=== PATIENT | female | born 1960 | race Caucasian/White ===

== ENCOUNTER → 2017-02-26 | Outpatient (CLI) | payer BC ==
--- NOTE | 2017-02-26 13:57 | XR ---
Left ankle HISTORY: Left ankle pain 3 views of the left ankle No comparisons There is soft tissue swelling. Bone mineralization, joint spaces and alignment are maintained. There is a small plantar calcaneal spur. Enthesophyte present at the insertion of the Achilles tendon. Dege nerative changes are present at the intertarsal joints, some spurring present at the tibiotalar joint . IMPRESSION: No acute fracture or dislocation. Ankle MRI may be of benefit.
== END | disposition home or self-care (01) ==
LOC: RADXRMAIN 11:38
PROVIDERS: ATTEND Family Medicine
DX: M25.572 Pain in left ankle and joints of left foot (principal)

== ENCOUNTER → 2017-03-30 | Outpatient (CLI) | payer BC | END | disposition home or self-care (01) | LOC: RADECHMAIN 12:09 | PROVIDERS: ATTEND Family Medicine | DX: I49.3 Ventricular premature depolarization (principal); I47.1 Supraventricular tachycardia; R00.8 Other abnormalities of heart beat | CPT/HCPCS: 93225; 93226 ==

== ENCOUNTER → 2018-04-29 | Outpatient (CLI) | payer BC ==
--- NOTE | 2018-04-30 10:02 | MM ---
Reason for exam: screening (asymptomatic). Last mammogram was performed 1 year and 11 months ago. History: Patient is postmenopausal and had first child at age 35. Family history of breast cancer in grandmother at age 60. Physical Findings: A clinical breast exam by your physician is recommended on an annual basis and results should be correlated with mammographic findings. MG 3D Screening Mammo W/Cad Bilateral CC and MLO view(s) were taken. Prior study comparison: May 16, 2016, bilateral MG screening mammo w CAD. February 04, 2015, bilateral MG screening mammo w CAD. There are scattered fibroglandular densities. No significant changes when compared with prior studies. ASSESSMENT: Benign, BI-RAD 2 RECOMMENDATION: Routine screening mammogram of both breasts in 1 year.
== END | disposition home or self-care (01) ==
LOC: RADMAMWWP 13:20
PROVIDERS: ATTEND Family Medicine
DX: Z12.31 Encounter for screening mammogram for malignant neoplasm of breast (principal)
CPT/HCPCS: 77063; 77067

== ENCOUNTER 2018-10-12 01:00 | Observation (INO) | payer BC ==
[2018-10-12 01:07] VITALS: RESP 18
[2018-10-12 01:27] LABS: Basophils % (A) 0 %; Eosinophils # (A) 0.2 k/uL (0-0.7); Eosinophils % (A) 3 %; HCT 42.2 % (34.0-46.0); Lymphocytes # (A) 2.6 k/uL (1.0-4.8); Lymphocytes % (A) 28 %; MCH 32.9 pg (25.0-35.0); MCHC 33.2 g/dL (31.0-37.0); MCV 99.1 fL (80.0-100.0); Monocytes # (A) 0.5 k/uL (0-1.0); Monocytes % (A) 6 %; Neutrophils # (A) 5.8 k/uL (1.3-7.7); Neutrophils % (A) 62 %; Platelet Count 162 k/uL (150-450); RBC 4.25 m/uL (3.80-5.40); RDW 13.7 % (11.5-15.5); WBC 9.3 k/uL (3.8-10.6)
[2018-10-12 01:32] LABS: INR 0.9 (<1.2); Partial Thromboplastin Time 28.5 sec (22.0-30.0); Prothrombin Time 10.1 sec (9.0-12.0)
[2018-10-12 01:38] LABS: ALT 20 U/L (9-52); AST 38 U/L (14-36); Albumin 3.6 g/dL (3.5-5.0); Alkaline Phosphatase 61 U/L (38-126); Anion Gap 5 mmol/L; Blood Urea Nitrogen 28 mg/dL (7-17); Carbon Dioxide 30 mmol/L (22-30); Chloride 105 mmol/L (98-107); Glucose 111 mg/dL (74-99); Magnesium 2.1 mg/dL (1.6-2.3); Potassium 4.3 mmol/L (3.5-5.1); Sodium 140 mmol/L (137-145); Total Bilirubin 0.3 mg/dL (0.2-1.3)
--- NOTE | 2018-10-12 01:49 | ED ---
Arrhythmia/Palpitations HPI - General Chief Complaint: Arrhythmia/Palpitations Stated Complaint: AFIB Time Seen by Provider: 10/12/18 01:09 Source: patient Mode of arrival: ambulatory Limitations: no limitations - History of Present Illness Initial Comments: Kady 57-year-old female with a history of A. fib currently on oral metoprolol who presents the ER today via EMS as a transfer from an outside facility. Patient states that she had a very stressful week and a very stressful evening, she reports that she began having palpitations and was concerned that she may be in A. fib, she waited approximately 3 hours but the symptoms persisted she reports feeling as though her heart was racing and she can catch her breath which prompted her to seek care at outside hospital where she was found to be in A. fib with RVR. Patient denies any pressure-like chest pain diaphoresis or lightheadedness. At the outside facility she was found to have a low potassium which was replaced orally, her EKG revealed A. fib with RVR and she was given a 10 mg bolus of Cardizem Zosyn was started on a Cardizem drip. Patient converted back to sinus rhythm during transport to our hospital and was found to be in sinus rhythm upon arrival. Patient had no acute complaints upon arrival. - Related Data Home Medications Medication Instructions Recorded Confirmed Acetaminophen [Tylenol 8 Hour] 650 mg PO Q8H PRN 07/01/18 07/01/18 Apixaban [Eliquis] 5 mg PO BID 07/01/18 07/01/18 Atorvastatin Calcium [Lipitor] 10 mg PO HS 07/01/18 07/01/18 C,E,Zinc,Copper 11/Szmqi2n/Lut 1 cap PO DAILY 07/01/18 07/01/18 [Ocuvite Adult 50 Plus Softgel] Citalopram Hydrobromide [CeleXA] 40 mg PO DAILY 07/01/18 07/01/18 Fluticasone Nasal Jbphh [Flonase 1 spray EA NOSTRIL DAILY 07/01/18 07/01/18 Nasal Jbphh] Furosemide [Lasix] 40 mg PO DAILY 07/01/18 07/01/18 Olopatadine HCl 1 drop BOTH EYES DAILY PRN 07/01/18 07/01/18 Oxybutynin Xl [Ditropan XL] 10 mg PO HS 07/01/18 07/01/18 Potassium Chloride [Klor-Con 20] 20 meq PO BID 07/01/18 07/01/18 busPIRone HCL 10 mg PO DAILY 07/01/18 07/01/18 Previous Rx's Medication Instructions Recorded Metoprolol Succinate (ER) [Toprol 50 mg PO DAILY #30 tab.er.24h 07/03/18 XL] Spironolactone [Aldactone] 25 mg PO DAILY #30 tablet 07/03/18 Allergies Allergy/AdvReac Type Severity Reaction Status Date / Time No Known Allergies Allergy Verified 10/12/18 01:07 Review of Systems ROS Statement: Those systems with pertinent positive or pertinent negative responses have been documented in the HPI. ROS Other: All systems not noted in ROS Statement are negative. Past Medical History Past Medical History: Atrial Fibrillation, Deep Vein Thrombosis (DVT), GI Bleed , Hyperlipidemia, Pneumonia Additional Past Medical History / Comment(s): Afib, DVT L leg, bilateral leg edema, rectal bleed, headaches, bronchitis, sinus allergies, constipation History of Any Multi-Drug Resistant Organisms: None Reported Past Surgical History: Appendectomy, Section, Tonsillectomy Additional Past Surgical History / Comment(s): Pilonidial cyst removed, ovarian cyst removal, colonoscopy with benign polyp Past Anesthesia/Blood Transfusion Reactions: Motion Sickness Additional Past Anesthesia/Blood Transfusion Reaction / Comment(s): Pt states she has had problems with hypotension with surgery. Past Psychological History: Anxiety, Depression Smoking Status: Current every day smoker Past Alcohol Use History: Rare Past Drug Use History: None Reported - Past Family History Father Family Medical History: Diabetes Mellitus Additional Family Medical History / Comment(s): Paternal grandfather had a NV and paternal grandmother had a CVA. Mother Family Medical History: Deep Vein Thrombosis (DVT) Additional Family Medical History / Comment(s): Mother had had DVTs. She is living. Pt's maternal aunt of a PE. Her maternal grandparents had DVTs General Exam - General Exam Comments Initial Comments: Physical Exam GENERAL: Patient is well-developed and well-nourished. Patient is nontoxic and well-hydrated and is in no distress. HENT: Normocephalic, Atraumatic. EYES: PERRL, EOMI PULMONARY: Unlabored respirations. No audible rales rhonchi or wheezing was noted. CARDIOVASCULAR: There is a regular rate and rhythm without any murmurs gallops or rubs. Bilateral lower extremity edema, nonpitting ABDOMEN: Soft and nontender with normal bowel sounds. SKIN: Skin is clear with no lesions or rashes and otherwise unremarkable. : Deferred NEUROLOGIC: Patient is alert and oriented x3. Moving all extremities spontaneously MUSCULOSKELETAL: Normal extremities with adequate strength and full range of motion. No calf tenderness. PSYCHIATRIC: Normal psychiatric evaluation. Limitations: no limitations Limitations: no limitations Course Vital Signs 10/12/18 01:01 Temperature 97.8 F Pulse Rate 65 Respiratory 18 Rate Blood Pressure 108/64 O2 Sat by Pulse 100 Oximetry EKG Findings - EKG Comments: EKG Findings:: EKG obtained at 1:25 AM, rate is 60 rhythm is sinus there is a normal axis there are normal intervals there no acute ST elevations or depressions there is no evidence of acute ischemia or infarction. Medical Decision Making - Medical Decision Making Patient care was discussed with transferring physician Dr. collazo, patient with a history of A. fib which is usually well-controlled on oral Lopressor visiting in A. fib with RVR with rates in the 140s and signed labs the outside facility revealed hypokalemia, troponin negative Patient received Cardizem upon arrival at our hospital patient was in sinus rhythm with rate in the 60s and was mildly hypotensive decision was made to discontinue Cardizem and continue patient's oral Lopressor Repeat labs ordered and patient care was discussed with admitting physician Dr. Rodriguez per patient's PCP Dr. Peralta's preference. Dr. Rodriguez accepts the admission for A. fib with RVR and requests a consult cardiology. Admission orders and consult were placed. Patient remained hemodynamically stable throughout her stay in the emergency department. - Lab Data Result diagrams: 10/12/18 01:15 10/12/18 01:15 Lab Results 10/12/18 10/12/18 10/12/18 Range/Units 01:15 01:15 01:15 WBC 9.3 (3.8-10.6) k/uL RBC 4.25 (3.80-5.40) m/uL Hgb 14.0 (11.4-16.0) gm/dL Hct 42.2 (34.0-46.0) % MCV 99.1 (80.0-100.0) fL MCH 32.9 (25.0-35.0) pg MCHC 33.2 (31.0-37.0) g/dL RDW 13.7 (11.5-15.5) % Plt Count 162 (150-450) k/uL Neutrophils % 62 % Lymphocytes % 28 % Monocytes % 6 % Eosinophils % 3 % Basophils % 0 % Neutrophils # 5.8 (1.3-7.7) k/uL Lymphocytes # 2.6 (1.0-4.8) k/uL Monocytes # 0.5 (0-1.0) k/uL Eosinophils # 0.2 (0-0.7) k/uL Basophils # 0.0 (0-0.2) k/uL PT (9.0-12.0) sec INR (<1.2) APTT (22.0-30.0) sec Sodium 140 (137-145) mmol/L Potassium 4.3 (3.5-5.1) mmol/L Chloride 105 (98-107) mmol/L Carbon Dioxide 30 (22-30) mmol/L Anion Gap 5 mmol/L BUN 28 H (7-17) mg/dL Creatinine 0.77 (0.52-1.04) mg/dL Est GFR (CKD-EPI)AfAm >90 (>60 ml/min/1.73 sqM) Est GFR (CKD-EPI)NonAf 87 (>60 ml/min/1.73 sqM) Glucose 111 H (74-99) mg/dL Calcium 9.0 (8.4-10.2) mg/dL Magnesium 2.1 (1.6-2.3) mg/dL Total Bilirubin 0.3 (0.2-1.3) mg/dL AST 38 H (14-36) U/L ALT 20 (9-52) U/L Alkaline Phosphatase 61 (38-126) U/L Troponin I (0.000-0.034) ng/mL NT-Pro-B Natriuret Pep 133 pg/mL Total Protein 6.0 L (6.3-8.2) g/dL Albumin 3.6 (3.5-5.0) g/dL 10/12/18 10/12/18 Range/Units 01:15 01:15 WBC (3.8-10.6) k/uL RBC (3.80-5.40) m/uL Hgb (11.4-16.0) gm/dL Hct (34.0-46.0) % MCV (80.0-100.0) fL MCH (25.0-35.0) pg MCHC (31.0-37.0) g/dL RDW (11.5-15.5) % Plt Count (150-450) k/uL Neutrophils % % Lymphocytes % % Monocytes % % Eosinophils % % Basophils % % Neutrophils # (1.3-7.7) k/uL Lymphocytes # (1.0-4.8) k/uL Monocytes # (0-1.0) k/uL Eosinophils # (0-0.7) k/uL Basophils # (0-0.2) k/uL PT 10.1 (9.0-12.0) sec INR 0.9 (<1.2) APTT 28.5 (22.0-30.0) sec Sodium (137-145) mmol/L Potassium (3.5-5.1) mmol/L Chloride (98-107) mmol/L Carbon Dioxide (22-30) mmol/L Anion Gap mmol/L BUN (7-17) mg/dL Creatinine (0.52-1.04) mg/dL Est GFR (CKD-EPI)AfAm (>60 ml/min/1.73 sqM) Est GFR (CKD-EPI)NonAf (>60 ml/min/1.73 sqM) Glucose (74-99) mg/dL Calcium (8.4-10.2) mg/dL Magnesium (1.6-2.3) mg/dL Total Bilirubin (0.2-1.3) mg/dL AST (14-36) U/L ALT (9-52) U/L Alkaline Phosphatase (38-126) U/L Troponin I <0.012 (0.000-0.034) ng/mL NT-Pro-B Natriuret Pep pg/mL Total Protein (6.3-8.2) g/dL Albumin (3.5-5.0) g/dL Disposition Clinical Impression: Atrial fibrillation, Atrial fibrillation with RVR Disposition: ADMITTED IP TO THIS HOSP Condition: Stable Is patient prescribed a controlled substance at d/c from ED?: No Referrals: Sara Peralta MD [Primary Care Provider] - 1-2 days
[2018-10-12] MEDS ORDERED: ONDANSETRON 4 MG/2 ML VIAL IVP PRN (06:44)
[2018-10-12] MEDS ORDERED: MELATONIN 3 MG TABLET PO PRN (06:44)
[2018-10-12] MEDS ORDERED: NALOXONE 0.4 MG/ML 1 ML VIAL IV PRN (06:44)
[2018-10-12] MEDS ORDERED: ACETAMINOPHEN TAB 325 MG TAB PO PRN (06:44)
[2018-10-12] MEDS ORDERED: ALPRAZolam 0.25 MG TAB PO PRN (06:44)
--- NOTE | 2018-10-12 06:56 | P.HPIM ---
History of Present Illness H&P Date: 10/12/18 Chief Complaint: palpitation 57-year-old female with history of A. fib, DVT, hypertension, anxiety and depression Patient was at her baseline status of health however she reports overwhelming stress over the past week and she felt mentally exhausted. And then suddenly she felt her heart was racing she waited for 2-3 hours as instructed by her PCP in the past she knew that she is probably in A. fib she wasn't symptomatic at that point denies any chest pain or trouble breathing or any dizziness. However because symptoms didn't resolve of palpitations she decided to go to the hospital she went to a facility at [place], diagnosed with A. fib and RVR started on Cardizem drip. And also she was found to have low potassium that was replaced. And then her blood pressure started dropping she started feeling dizzy patient was transferred to our facility however and Route she converted into normal sinus rhythm. In our facility at the ED Cardizem was discontinued patient was in sinus rhythm. Her labs were unremarkable potassium and magnesium both within normal limits patient was admitted under observation for cardiology to evaluate the patient. Currently patient is asymptomatic laying comfortable in bed Patient otherwise denies any chest pain or trouble breathing denies any GI bleeding denies any fevers or chills denies any abdominal pain Review of Systems Pertinent positives as noted in HPI. All other systems were reviewed and are negative Past Medical History Past Medical History: Atrial Fibrillation, Deep Vein Thrombosis (DVT), GI Bleed , Hyperlipidemia, Pneumonia Additional Past Medical History / Comment(s): Afib, DVT L leg, bilateral leg edema, rectal bleed, headaches, bronchitis, sinus allergies, constipation, abcess on kidney (R), Ovarian cyst History of Any Multi-Drug Resistant Organisms: None Reported Past Surgical History: Appendectomy, Section, Tonsillectomy Additional Past Surgical History / Comment(s): Pilonidial cyst removed, ovarian cyst removal, colonoscopy with benign polyp Past Anesthesia/Blood Transfusion Reactions: Motion Sickness Additional Past Anesthesia/Blood Transfusion Reaction / Comment(s): Pt states she has had problems with hypotension with surgery. Past Psychological History: Anxiety, Depression Additional Psychological History / Comment(s): Pt resides with her spouse. She works in [employer]. She is independent. Smoking Status: Current every day smoker Past Alcohol Use History: Rare Additional Past Alcohol Use History / Comment(s): Pt started smoking in 1977 and is down to a half pack per day. Past Drug Use History: None Reported - Past Family History Father Family Medical History: Diabetes Mellitus Additional Family Medical History / Comment(s): Paternal grandfather had a DC and paternal grandmother had a CVA. Mother Family Medical History: Deep Vein Thrombosis (DVT) Additional Family Medical History / Comment(s): Mother had had DVTs. She is living. Pt's maternal aunt of a PE. Her maternal grandparents had DVTs Medications and Allergies Home Medications Medication Instructions Recorded Confirmed Type Acetaminophen [Tylenol 8 Hour] 650 mg PO Q8H PRN 07/01/18 07/01/18 History Apixaban [Eliquis] 5 mg PO BID 07/01/18 07/01/18 History Atorvastatin Calcium [Lipitor] 10 mg PO HS 07/01/18 07/01/18 History C,E,Zinc,Copper 11/Mczyr1q/Lut 1 cap PO DAILY 07/01/18 07/01/18 History [Ocuvite Adult 50 Plus Softgel] Citalopram Hydrobromide [CeleXA] 40 mg PO DAILY 07/01/18 07/01/18 History Fluticasone Nasal [place] [Flonase 1 spray EA NOSTRIL DAILY 07/01/18 07/01/18 History Nasal [place]] Furosemide [Lasix] 40 mg PO DAILY 07/01/18 07/01/18 History Olopatadine HCl 1 drop BOTH EYES DAILY PRN 07/01/18 07/01/18 History Oxybutynin Xl [Ditropan XL] 10 mg PO HS 07/01/18 07/01/18 History Potassium Chloride [Klor-Con 20] 20 meq PO BID 07/01/18 07/01/18 History busPIRone HCL 10 mg PO DAILY 07/01/18 07/01/18 History Metoprolol Succinate (ER) [Toprol 50 mg PO DAILY #30 tab.er.24h 07/03/18 Rx XL] Spironolactone [Aldactone] 25 mg PO DAILY #30 tablet 07/03/18 Rx Allergies Allergy/AdvReac Type Severity Reaction Status Date / Time No Known Allergies Allergy Verified 10/12/18 01:07 Physical Exam Vitals: Vital Signs Temp Pulse Pulse Resp BP BP Pulse Ox 10/12/18 04:00 97.6 F 63 18 99/64 96 10/12/18 02:18 97.9 F 62 18 90/50 100 10/12/18 01:01 97.8 F 65 18 108/64 100 Intake and Output 10/11/18 10/11/18 10/12/18 14:59 22:59 06:59 Other: Voiding Method Toilet # Voids 1 Weight 111.2 kg Constitutional: No acute distress, conversant, pleasant Eyes: Anicteric sclerae, moist conjunctiva, no lid-lag Pupils equal round reactive to light ENMT: NC/AT Oropharynx clear, no erythema, or exudates Neck: Supple, FROM, no masses, or JVD No carotid bruits No thyromegaly Lungs: Clear to auscultation Clear to percussion Normal respiratory effort, no accessory muscle use Cardiovascular: Heart regular in rate and rhythm, No murmurs, gallops, or rubs Trace peripheral edema bilaterally Abdominal: Soft Nontender, no guarding, rebound or rigidity Abdomen moving with respiration Normoactive bowel sounds No hepatomegaly, No splenomegaly No palpable mass No abdominal wall hernia noted Skin: Normal temperature, tone, texture, turgor No induration No subcutaneous nodules No rash, lesions No ulcers Extremities: No digital cyanosis No clubbing Pedal pulses intact and symmetrical Radial pulses intact and symmetrical No calf tenderness Psychiatric: Alert and oriented to person, place and time Appropriate affect fair judgment Neuro Muscles Strength 5/5 in all 4 extremities Sensation to light touch grossly present throughout Cranial nerves II-XII grossly intact No focal sensory deficits Lymphatics: no palpable cervical or supraclavicular , or inguinal lymph nodes Results CBC & Chem 7: 10/12/18 01:15 10/12/18 01:15 Labs: Abnormal Lab Results - Last 24 Hours (Table) 10/12/18 Range/Units 01:15 BUN 28 H (7-17) mg/dL Glucose 111 H (74-99) mg/dL AST 38 H (14-36) U/L Total Protein 6.0 L (6.3-8.2) g/dL Thrombosis Risk Factor Assmnt - Choose All That Apply Any of the Below Risk Factors Present?: Yes Each Factor Represents 1 point: Age 41-60 years, Obesity (BMI >25), Swollen legs (current) Each Risk Factor Represents 3 Points: Family history of DVT/PE, History of DVT/ PE Thrombosis Risk Factor Assessment Total Risk Factor Score: 9 Thrombosis Risk Factor Assessment Level: High Risk Assessment and Plan Assessment: 57-year-old female with history of A. fib and RVR recently hospitalized in June 2018 admitted under observation with anticipated length of stay less than 48 hours for A. fib with RVR patient transferred to our facility from different hospital where she was diagnosed with A. fib and RVR started on Cardizem drip however she converted into sinus rhythm and Route and Cardizem drip was stopped when she arrived. Cardiology consultative for patient evaluation and clearance Plan: A. fib with RVR currently in sinus rhythm. On Eliquis Patient maintained on her home by mouth medications Cardizem drip was discontinued upon arrival as patient converted into sinus rhythm and Route while being transferred from the other facility Cardiology consult Continue Eliquis Potassium and magnesium within normal limits, potassium was replaced at the other facility Continue other home meds History of hypertension currently borderline low Anxiety and depression continue with home meds Due to prophylaxis on Eliquis for A. fib Preformed a thorough record review from recent hospitalization in June 2018 for A. fib with RVR echocardiogram showed left ventricular ejection fraction of 55% patient's metoprolol dose was adjusted and patient converted into sinus rhythm Surrogate decision-maker: Patient Andriy CODE STATUS: Full code Discussed with: Patient, ER Anticipated discharge: <[address]: Home A total of 55 minutes was spent on the care of this complex patient more than 50 % of the time was spent in counseling and care coordination.
[2018-10-12 07:20] LABS: Anion Gap 5 mmol/L; Blood Urea Nitrogen 26 mg/dL (7-17); Carbon Dioxide 30 mmol/L (22-30); Chloride 107 mmol/L (98-107); Glucose 101 mg/dL (74-99); Magnesium 2.1 mg/dL (1.6-2.3); Sodium 142 mmol/L (137-145)
[2018-10-12] MEDS ORDERED: METOPROLOL SUCCINATE (ER) 50 MG TAB.ER.24H PO SCH ×2 (09:00→21:00)
[2018-10-12] MEDS ORDERED: FUROSEMIDE 40 MG TAB PO SCH (09:00)
[2018-10-12] MEDS ORDERED: busPIRone HCl 10 MG TAB PO SCH (09:00)
[2018-10-12] MEDS ORDERED: SPIRONOLACTONE 25 MG TAB PO SCH (09:00)
[2018-10-12] MEDS ORDERED: CITALOPRAM HYDROBROMIDE 20 MG TAB PO SCH (09:00)
[2018-10-12] MEDS ORDERED: APIXABAN 5 MG TAB PO SCH (09:00)
[2018-10-12] MEDS ORDERED: FLECAINIDE 50 MG TAB PO SCH (09:00)
--- NOTE | 2018-10-12 11:54 | P.CRDCN ---
History of Present Illness History of present illness: This is a pleasant 57-year-old female past medical history significant for paroxysmal atrial fibrillation on long-term anticoagulation, dyslipidemia, depression, history of DVT in the past and chronic lower extremity edema. She follows in the office with Dr. Ramires. We've been asked to see her in consultation secondary to atrial fibrillation with rapid ventricular response. She presented initially yesterday to [facility] with symptoms of palpitations and shortness of breath. She was found to be in atrial fibrillation with rapid ventricular response. She was given IV Cardizem and subsequently converted back to sinus mechanism. She was found to have a potassium of 3.3 was replaced prior to transfer.She was then transferred here for further evaluation. The patient is seen and examined resting comfortably in bed in no acute distress. She initially presented to the hospital here in sinus mechanism and has maintained that since arrival. She denies symptoms of chest discomfort, shortness of breath, dizziness or palpitations. The patient states that whenever her potassium gets low she goes into atrial fibrillation. Laboratory data reviewed, WBC 9.3, hemoglobin 14, platelets 162, sodium 142, potassium 4.0, creatinine 0.65, magnesium 2.1, TSH 2.55, NTproBNP 133. Current cardiac medications include Eliquis 5 mg twice a day, atorvastatin 10 mg daily, Lasix 40 mg daily, Zaroxolyn 2.5 mg on Sunday and Sunday, Toprol 50 mg daily and potassium supplementation 20 daily. Most recent echocardiogram obtained in June 2018 reveals preserved left ventricular systolic function with ejection fraction 55%, mild mitral regurgitation and mild tricuspid regurgitation noted. At the time of my exam: CONSTITUTIONAL: Denies fever. Denies chills. EYES: Denies blurred vision. Denies vision changes. Denies eye pain. EARS, NOSE, MOUTH & THROAT: Denies headache. Denies sore throat. Denies ear pain. CARDIOVASCULAR: Denies chest pain. Denies shortness of breath. Denies orthopnea. Denies PND. Denies palpitations. RESPIRATORY: Denies cough. GASTROINTESTINAL: Denies abdominal pain. Denies diarrhea. Denies constipation. Denies nausea. Denies vomiting. MUSCULOSKELETAL: Denies myalgias. INTEGUMENTARY: Denies pruitis. Denies rash. NEUROLOGIC: Denies numbness. Denies tingling. Denies weakness. PSYCHIATRIC: Denies anxiety. Denies depression. ENDOCRINE: Denies fatigue. Denies weight change. Denies polydipsia. Denies polyurina. GENITOURINARY: Denies burning, hematuria or urgency with micturation. HEMATOLOGIC: Denies history of anemia. Denies bleeding. Blood pressure 94/57 heart rate 65 afebrile maintaining oxygen saturation on room air GENERAL: This is a 57-year-old male in no apparent distress at the time of my examination. HEENT: Head is atraumatic, normocephalic. Pupils are equal, round. Sclerae anicteric. Conjunctivae are clear. Mucous membranes of the mouth are moist. Neck is supple. There is no jugular venous distention. No carotid bruit is heard. LUNGS: Clear to auscultation no wheezes, rales or rhonchi. No chest wall tenderness is noted on palpation or with deep breathing. HEART: Regular rate and rhythm without murmurs, rubs or gallops. S1 and S2 heard. ABDOMEN: Soft, nontender. Bowel sounds are heard. No organomegaly noted. EXTREMITIES: No evidence of peripheral edema and no calf tenderness noted. VASCULAR: Radial and dorsalis pedis pulses palpated, no evidence of clubbing. NEUROLOGIC: Patient is awake, alert and oriented x3. ASSESSMENT Paroxysmal atrial fibrillation with rapid ventricular response, resolve. Converted to sinus. Dyslipidemia History of DVT in the past Chronic lower extremity edema Hypokalemia, resolved PLAN Initiate on flecanide 50 mg BID, first dose now as well as aldactone 25 mg daily. This will help her problem with hypokalemia. Increase activity and ambulation in the halls. If she continues to maintain sinus mechanism she may be discharged home this afternoon. She already has an appointment scheduled in our office next week. Thank you kindly for this consultation. Nurse Practitioner note has been reviewed, I agree with a documented findings and plan of care. Patient was seen and examined. Past Medical History Past Medical History: Atrial Fibrillation, Deep Vein Thrombosis (DVT), GI Bleed , Hyperlipidemia, Pneumonia Additional Past Medical History / Comment(s): Afib, DVT L leg, bilateral leg edema, rectal bleed, headaches, bronchitis, sinus allergies, constipation, abcess on kidney (R), Ovarian cyst History of Any Multi-Drug Resistant Organisms: None Reported Past Surgical History: Appendectomy, Section, Tonsillectomy Additional Past Surgical History / Comment(s): Pilonidial cyst removed, ovarian cyst removal, colonoscopy with benign polyp Past Anesthesia/Blood Transfusion Reactions: Motion Sickness Additional Past Anesthesia/Blood Transfusion Reaction / Comment(s): Pt states she has had problems with hypotension with surgery. Past Psychological History: Anxiety, Depression Additional Psychological History / Comment(s): Pt resides with her spouse. She works in [employer]. She is independent. Smoking Status: Current every day smoker Past Alcohol Use History: Rare Additional Past Alcohol Use History / Comment(s): Pt started smoking in 1977 and is down to a half pack per day. Past Drug Use History: None Reported - Past Family History Father Family Medical History: Diabetes Mellitus Additional Family Medical History / Comment(s): Paternal grandfather had a CA and paternal grandmother had a CVA. Mother Family Medical History: Deep Vein Thrombosis (DVT) Additional Family Medical History / Comment(s): Mother had had DVTs. She is living. Pt's maternal aunt of a PE. Her maternal grandparents had DVTs Medications and Allergies Home Medications Medication Instructions Recorded Confirmed Type Acetaminophen [Tylenol 8 Hour] 650 mg PO Q8H PRN 07/01/18 10/12/18 History Apixaban [Eliquis] 5 mg PO BID 07/01/18 10/12/18 History Atorvastatin Calcium [Lipitor] 10 mg PO HS 07/01/18 10/12/18 History Citalopram Hydrobromide [CeleXA] 40 mg PO DAILY 07/01/18 10/12/18 History Furosemide [Lasix] 40 mg PO DAILY 07/01/18 10/12/18 History Oxybutynin Xl [Ditropan XL] 10 mg PO HS 07/01/18 10/12/18 History Potassium Chloride [Klor-Con 20] 20 meq PO DAILY 07/01/18 10/12/18 History busPIRone HCL 10 mg PO DAILY 07/01/18 10/12/18 History Metoprolol Succinate (ER) [Toprol 50 mg PO DAILY #30 tab.er.24h 07/03/18 Rx XL] Black Cohosh 540 mg PO DAILY 10/12/18 10/12/18 History Evening [place] Oil 500 mg PO DAILY 10/12/18 10/12/18 History Inulin/Chromium Picolinate [Fiber 1 tab PO DAILY 10/12/18 10/12/18 History Gummies Chew] Lutein 10 mg PO DAILY 10/12/18 10/12/18 History Metolazone [Zaroxolyn] 2.5 mg PO WESA 10/12/18 10/12/18 History Allergies Allergy/AdvReac Type Severity Reaction Status Date / Time No Known Allergies Allergy Verified 10/12/18 07:49 Physical Exam Vitals: Vital Signs Temp Pulse Pulse Resp BP BP Pulse Ox 10/12/18 04:00 97.6 F 63 18 99/64 96 10/12/18 02:18 97.9 F 62 18 90/50 100 10/12/18 01:01 97.8 F 65 18 108/64 100 Intake and Output 10/11/18 10/12/18 10/12/18 22:59 06:59 14:59 Other: Voiding Method Toilet # Voids 1 Weight 111.2 kg Results 10/12/18 01:15 10/12/18 06:49 Cardiac Enzymes 10/12/18 10/12/18 Range/Units 01:15 01:15 AST 38 H (14-36) U/L Troponin I <0.012 (0.000-0.034) ng/mL Coagulation 10/12/18 Range/Units 01:15 PT 10.1 (9.0-12.0) sec APTT 28.5 (22.0-30.0) sec CBC 10/12/18 Range/Units 01:15 WBC 9.3 (3.8-10.6) k/uL RBC 4.25 (3.80-5.40) m/uL Hgb 14.0 (11.4-16.0) gm/dL Hct 42.2 (34.0-46.0) % Plt Count 162 (150-450) k/uL Comprehensive Metabolic Panel 10/12/18 10/12/18 Range/Units 01:15 06:49 Sodium 140 142 (137-145) mmol/L Potassium 4.3 4.0 (3.5-5.1) mmol/L Chloride 105 107 (98-107) mmol/L Carbon Dioxide 30 30 (22-30) mmol/L BUN 28 H 26 H (7-17) mg/dL Creatinine 0.77 0.65 (0.52-1.04) mg/dL Glucose 111 H 101 H (74-99) mg/dL Calcium 9.0 9.0 (8.4-10.2) mg/dL AST 38 H (14-36) U/L ALT 20 (9-52) U/L Alkaline Phosphatase 61 (38-126) U/L Total Protein 6.0 L (6.3-8.2) g/dL Albumin 3.6 (3.5-5.0) g/dL Current Medications Generic Name Dose Route Start Last Admin Trade Name Freq PRN Reason Stop Dose Admin Acetaminophen 650 mg 10/12/18 06:44 Tylenol Tab PO Q6HR PRN Mild Pain or Fever > 100.5 Alprazolam 0.25 mg 10/12/18 06:44 Xanax PO Q6HR PRN Anxiety Apixaban 5 mg 10/12/18 09:00 Eliquis PO BID [facility] Aspirin 325 mg 10/13/18 09:00 Aspirin PO DAILY [facility] Atorvastatin Calcium 10 mg 10/12/18 21:00 Lipitor PO HS [facility] Buspirone HCl 10 mg 10/12/18 09:00 Buspar PO DAILY [facility] Citalopram Hydrobromide 40 mg 10/12/18 09:00 Celexa PO DAILY [facility] Furosemide 40 mg 10/12/18 09:00 Lasix PO DAILY [facility] Melatonin 3 mg 10/12/18 06:44 Melatonin PO HS PRN Insomnia Metoprolol Succinate 50 mg 10/12/18 09:00 Toprol Xl PO DAILY [facility] Naloxone HCl 0.2 mg 10/12/18 06:44 Narcan IV Q2M PRN Opioid Reversal Ondansetron HCl 4 mg 10/12/18 06:44 Zofran IVP Q8HR PRN Nausea And Vomiting Intake and Output 10/11/18 10/12/18 10/12/18 22:59 06:59 14:59 Other: Voiding Method Toilet # Voids 1 Weight 111.2 kg 10/12/18 01:15 10/12/18 06:49
[2018-10-12 14:02] VITALS: BP 95/59; PULSE 63; TEMP 98.1
--- NOTE | 2018-10-12 17:46 | P.DS ---
Providers Date of admission: 10/12/18 01:48 Expected date of discharge: 10/12/18 Attending physician: Shobha Mccartney MD Consults: 10/12/18 01:20 Consult Physician Urgent Consulting Provider: [facility] Consult Reason/Comments: RVR Do you want consulting provider notified?: Yes, Notify in am Primary care physician: Sara Peralta MD - Discharge Diagnosis(es) (1) Paroxysmal A-fib Current Visit: No Status: Acute (2) Hypokalemia Current Visit: Yes Status: Acute (3) Essential hypertension Current Visit: No Status: Acute (4) Hyperlipidemia Current Visit: No Status: Acute (5) History of DVT (deep vein thrombosis) Current Visit: Yes Status: Acute Hospital Course: The patient is a 57-year-old female with a past medical history of atrial fibrillation on long-term anticoagulation, history of DVT with chronic lower extremity swelling, dyslipidemia Who is admitted for paroxysmal A. fib with RVR after she presented to [place] with complaints of dizziness and palpitations and was found to be in A. fib with RVR there. She was started on Cardizem drip and converted back to sinus rhythm and was subsequently transferred here for further workup and evaluation. She was noted to be hypokalemic with a potassium of 3.3 this was replaced prior to transfer. She was transitioned from IV Cardizem back to Toprol 50 mg by mouth daily and continued on anticoagulation with Eliquis 5 mg by mouth twice a day. Cardiology was consulted and the patient was seen by Dr. Mata who initiated the patient on flecanide and Aldactone to help with her hypokalemia and rhythm control. The patient maintained normal sinus rhythm and was subsequently discharged home in stable condition and instructed to follow-up with cardiology Dr. Sanchez in 1 week. This discharge process took approximately 30 minutes. Focused exam Cardiovascular: Regular rate and rhythm no murmurs or gallops Patient Condition at Discharge: Stable Plan - Discharge Summary Discharge Rx Participant: No New Discharge Prescriptions: New Flecainide [Tambocor] 50 mg PO Q12HR tab Spironolactone [Aldactone] 25 mg PO DAILY #30 tab Continue busPIRone HCL 10 mg PO DAILY Atorvastatin Calcium [Lipitor] 10 mg PO HS Apixaban [Eliquis] 5 mg PO BID Acetaminophen [Tylenol 8 Hour] 650 mg PO Q8H PRN PRN Reason: Pain Oxybutynin Xl [Ditropan XL] 10 mg PO HS Citalopram Hydrobromide [CeleXA] 40 mg PO DAILY Furosemide [Lasix] 40 mg PO DAILY Potassium Chloride [Klor-Con 20] 20 meq PO DAILY Metoprolol Succinate (ER) [Toprol XL] 50 mg PO DAILY #30 tab.er.24h Metolazone [Zaroxolyn] 2.5 mg PO WESA Lutein 10 mg PO DAILY Inulin/Chromium Picolinate [Fiber Gummies Chew] 1 tab PO DAILY Evening [place] Oil 500 mg PO DAILY Black Cohosh 540 mg PO DAILY Discharge Medication List Acetaminophen [Tylenol 8 Hour] 650 mg PO Q8H PRN 07/01/18 [History] Apixaban [Eliquis] 5 mg PO BID 07/01/18 [History] Atorvastatin Calcium [Lipitor] 10 mg PO HS 07/01/18 [History] Citalopram Hydrobromide [CeleXA] 40 mg PO DAILY 07/01/18 [History] Furosemide [Lasix] 40 mg PO DAILY 07/01/18 [History] Oxybutynin Xl [Ditropan XL] 10 mg PO HS 07/01/18 [History] Potassium Chloride [Klor-Con 20] 20 meq PO DAILY 07/01/18 [History] busPIRone HCL 10 mg PO DAILY 07/01/18 [History] Metoprolol Succinate (ER) [Toprol XL] 50 mg PO DAILY #30 tab.er.24h 07/03/18 [Rx ] Black Cohosh 540 mg PO DAILY 10/12/18 [History] Evening [place] Oil 500 mg PO DAILY 10/12/18 [History] Flecainide [Tambocor] 50 mg PO Q12HR tab 10/12/18 [Rx] Inulin/Chromium Picolinate [Fiber Gummies Chew] 1 tab PO DAILY 10/12/18 [History ] Lutein 10 mg PO DAILY 10/12/18 [History] Metolazone [Zaroxolyn] 2.5 mg PO WESA 10/12/18 [History] Spironolactone [Aldactone] 25 mg PO DAILY #30 tab 10/12/18 [Rx] Follow up Appointment(s)/Referral(s): Gordy Sanchez MD [STAFF PHYSICIAN] - 1 Week (Keep current appointment for follow up) Sara Peralta MD [Primary Care Provider] - 1-2 days (Please make appointment when office is open) Activity/Diet/Wound Care/Special Instructions: Please call your [facility] in the morning to ensure flecainide prescription has been filled, if not please call unit for us to get in touch with perfect binder operator regarding medication. Discharge Disposition: HOME SELF-CARE
[2018-10-12] MEDS ORDERED: ATORVASTATIN 10 MG TAB PO SCH (21:00)
[2018-10-13] MEDS ORDERED: ASPIRIN 325 MG TAB PO SCH (09:00)
== END 2018-10-12 17:10 | disposition home or self-care (01) ==
LOC: EC 01:00 → 3SCARD 01:48
PROVIDERS: ADMIT Internal Medicine; ATTEND Internal Medicine
DX: I48.0 Paroxysmal atrial fibrillation (principal); E87.6 Hypokalemia; E78.5 Hyperlipidemia, unspecified; I10 Essential (primary) hypertension; F41.9 Anxiety disorder, unspecified; K59.00 Constipation, unspecified; R60.0 Localized edema; F32.9 Major depressive disorder, single episode, unspecified; F43.9 Reaction to severe stress, unspecified; F17.200 Nicotine dependence, unspecified, uncomplicated; E66.9 Obesity, unspecified; Z68.39 Body mass index [BMI] 39.0-39.9, adult; J30.9 Allergic rhinitis, unspecified; Z79.01 Long term (current) use of anticoagulants; Z79.899 Other long term (current) drug therapy; Z86.718 Personal history of other venous thrombosis and embolism; Z87.01 Personal history of pneumonia (recurrent); Z87.19 Personal history of other diseases of the digestive system; Z86.010 Personal history of colon polyps; Z87.09 Personal history of other diseases of the respiratory system; Z90.49 Acquired absence of other specified parts of digestive tract; Z83.3 Family history of diabetes mellitus; Z82.49 Family history of ischemic heart disease and other diseases of the circulatory system; Z82.3 Family history of stroke; Z83.2 Family history of diseases of the blood and blood-forming organs and certain disorders involving the immune mechanism
CPT/HCPCS: 99285; 36415; 93005; 83880; 80053; 80048; 84443; 83735; 84484; 85025; 85610; 85730; G0378

== ENCOUNTER → 2019-06-04 | Outpatient (CLI) | payer BC ==
--- NOTE | 2019-06-05 09:39 | XR ---
EXAMINATION TYPE: XR abdomen complete w decub DATE OF EXAM: 06/04/2019 COMPARISON: NONE HISTORY: Right lower quadrant TECHNIQUE: Supine, upright, and left side down lateral decubitus views of the abdomen are obtained. FINDINGS: Bowel gas pattern is nonspecific. Arthropathy of the hips. Lung bases clear. Hypertrophic a nd degenerative change spine. Retained fecal debris throughout the colon. IMPRESSION: Nonspecific abdomen correlate for constipation.
== END | disposition home or self-care (01) ==
LOC: RADXRMAIN 15:38
PROVIDERS: ATTEND Internal Medicine
DX: R10.31 Right lower quadrant pain (principal)
CPT/HCPCS: 74021

== ENCOUNTER → 2019-06-16 | Outpatient (CLI) | payer BC ==
--- NOTE | 2019-06-16 15:25 | US ---
EXAMINATION TYPE: US kidneys/renal and bladder DATE OF EXAM: 06/16/2019 COMPARISON: NONE CLINICAL HISTORY: N39.0 Frequent UTIs. EXAM MEASUREMENTS: Right Kidney: 11.3 x 4.2 x 4.5 cm Left Kidney: 10.6 x 6.2 x 4.9 cm Post Void Residual Volume: 118.75 mL Right Kidney: No hydronephrosis or masses seen Left Kidney: No hydronephrosis or masses seen Bladder: wnl There is no evidence for hydronephrosis at this point in time. No nephrolithiasis is seen. No felix s are identified. The urinary bladder is anechoic. Bilateral ureteral jets are seen. IMPRESSION: No acute process.
== END | disposition home or self-care (01) ==
LOC: RADUSWWP 14:50
PROVIDERS: ATTEND Nurse Practitioner Adult Health
DX: N39.0 Urinary tract infection, site not specified (principal); Z88.8 Allergy status to other drugs, medicaments and biological substances
CPT/HCPCS: 76770

== ENCOUNTER → 2020-10-29 | Outpatient (CLI) | payer BC ==
--- NOTE | 2020-11-01 11:41 | MM ---
Reason for exam: screening (asymptomatic). Last mammogram was performed 2 years and 6 months ago. History: Patient is postmenopausal and had first child at age 35. Family history of breast cancer in grandmother at age 60. Physical Findings: A clinical breast exam by your physician is recommended on an annual basis and results should be correlated with mammographic findings. MG 3D Screening Mammo W/Cad Bilateral CC and MLO view(s) were taken. Prior study comparison: April 29, 2018, bilateral MG 3d screening mammo w/cad. May 16, 2016, bilateral MG screening mammo w CAD. There are scattered fibroglandular densities. There is chronic nodularity in the left breast. No significant changes when compared with prior studies. ASSESSMENT: Benign, BI-RAD 2 RECOMMENDATION: Routine screening mammogram of both breasts in 1 year.
== END | disposition home or self-care (01) ==
LOC: RADMAMWWP 07:11
PROVIDERS: ATTEND Obstetrics & Gynecology Obstetrics
DX: Z12.31 Encounter for screening mammogram for malignant neoplasm of breast (principal); Z80.3 Family history of malignant neoplasm of breast
CPT/HCPCS: 77063; 77067

== ENCOUNTER → 2021-07-19 | Outpatient (CLI) | payer OTHER ==
--- NOTE | 2021-07-19 12:05 | XR ---
EXAMINATION TYPE: XR chest 2V DATE OF EXAM: 07/19/2021 COMPARISON: 07/01/2018 TECHNIQUE: PA and lateral views submitted. HISTORY: Cough FINDINGS: The lungs are clear and there is no pneumothorax, pleural effusion, or focal pneumonia. Hypertrophi c and degenerative change of the spine. Heart size normal. No overt failure. IMPRESSION: 1. No acute process.
== END | disposition home or self-care (01) ==
LOC: RADXRMAIN 11:23
PROVIDERS: ATTEND Internal Medicine
DX: R05.9 Cough, unspecified (principal)
CPT/HCPCS: 71046

== ENCOUNTER → 2021-08-31 | Outpatient (CLI) | payer OTHER ==
--- NOTE | 2021-08-31 14:39 | CTL ---
EXAMINATION TYPE: CT Low Dose Lung DATE OF EXAM ORDERED: 08/31/2021 HISTORY: Long-term tobacco use. Lung cancer screening CT DLP: 139.[address] CTDI: 3.8 mGy Automated exposure control for dose reduction was used. SCREENING VISIT: Baseline COMPARISON: None TECHNIQUE: Low dose computed tomography scan was performed through the chest at 1 mm thick sections a nd reconstructed images in multiple planes at 1 mm and [address] DIAGNOSTIC QUALITY: Satisfactory FINDINGS: LUNG NODULES: Present, detailed below: Scattered small calcified nodules or benign granulomas including 8 x 5 mm calcified nodule medial rig ht upper lobe axial image 38. There is noncalcified 6.9 x 5.3 mm posterior left upper lobe nodule abutting the fissure axial image 56. No additional greater than 5 mm noncalcified pulmonary nodules. LUNGS: COPD: Severity: None Fibrosis: Severity: None Lymph nodes: Calcified right paratracheal and anterior hilar lymph nodes consistent with product of o ld granulomatous disease. Other findings: None. RIGHT PLEURAL SPACE: Effusion: None Calcification: None Thickening: None Pneumothorax: None LEFT PLEURAL SPACE: Effusion: None Calcification: None Thickening: None Pneumothorax: None HEART: Heart Size: Normal Coronary Calcification: Mild Pericardial Effusion: None OTHER FINDINGS: Upper abdomen: None Bony thorax: Bridging osteophytes in the spine with preservation of disc spaces, correlate for DISH. Supraclavicular region: None Other: None IMPRESSION: Evidence of old granulomatous disease. Posterior 7 x 5 mm noncalcified left upper lung no dule abuts the superior aspect major fissure. CT LUNG RAD AND CT CHEST RECOMMENDATION: Lung-Rad 3 Probably Benign: 6 month follow-up LDCT. S Modifier (other clinically significant findings): None
== END | disposition home or self-care (01) ==
LOC: RADCTMAIN 13:57
PROVIDERS: ATTEND Internal Medicine
DX: Z12.2 Encounter for screening for malignant neoplasm of respiratory organs (principal); R91.1 Solitary pulmonary nodule; Z87.891 Personal history of nicotine dependence
CPT/HCPCS: 71271

== ENCOUNTER → 2022-02-28 | Outpatient (CLI) | payer OTHER ==
--- NOTE | 2022-03-01 07:44 | MM ---
Reason for Exam: Screening (asymptomatic). Last mammogram was performed 1 year(s) and 4 month(s) ago. Patient History: Menarche at age 12. First Full-Term at age 35. Late child-bearing (after 30). Postmenopausal. Maternal grandmother had breast cancer, age 60. Risk Values: Annie 5 year model risk: 2.2%. NCI Lifetime model risk: 10.9%. Prior Study Comparison: 05/16/2016 Bilateral Screening Mammogram, [facility]. 04/29/2018 Bilateral Screening Mammogram, [facility]. 10/29/2020 Bilateral Screening Mammogram, [facility]. Tissue Density: The breast tissue is heterogeneously dense. This may lower the sensitivity of mammography. Findings: Analyzed By CAD. There is no suspicious group of microcalcifications or new suspicious mass in either breast. Chronic nodularity upper outer left breast. Overall Assessment: Benign, BI-RAD 2 Management: Screening Mammogram of both breasts in 1 year. A clinical breast exam by your physician is recommended on an annual basis and results should be correlated with mammographic findings. Electronically signed and approved by: Juan Yeboah M.D. Radiologis
== END | disposition home or self-care (01) ==
LOC: RADMAMWWP 12:59
PROVIDERS: ATTEND Obstetrics & Gynecology Obstetrics
DX: Z08 Encounter for follow-up examination after completed treatment for malignant neoplasm (principal); Z80.3 Family history of malignant neoplasm of breast
CPT/HCPCS: 77063; 77067

== ENCOUNTER → 2022-04-17 | Outpatient (CLI) | payer OTHER ==
--- NOTE | 2022-04-17 11:55 | CTL ---
EXAMINATION TYPE: CT Low Dose Lung DATE OF EXAM ORDERED: 04/17/2022 HISTORY: . Lung cancer screening CT DLP: 142.[address] CTDI: 4.0 mGy Automated exposure control for dose reduction was used. SCREENING VISIT: COMPARISON: 08/31/2021 TECHNIQUE: Low dose computed tomography scan was performed through the chest at 1 mm thick sections a nd reconstructed images in multiple planes at 1 mm and [address] DIAGNOSTIC QUALITY: Satisfactory FINDINGS: There is a stable 6 mm left upper lobe pulmonary nodule. Calcified granuloma seen in the medial aspec t of the right upper lobe measuring 8 x 5 mm stable. 2 mm nodule axial image 186 report will retrospectively stable Heart size normal. Coronary artery calcification and mild atherosclerotic change aorta. No evidence o f aortic aneurysm. Calcified lymph nodes are seen in the mediastinum and hilum. No evidence of pneumothorax or pleural effusion. No focal pneumonia. No pleural-based calcifications. Hypertrophic and degenerative changes of the spine. Small hiatal hernia noted. IMPRESSION: 1. Stable pulmonary nodules unchanged from prior exam. 2. Findings suggest granulomatous disease. 3. Coronary artery calcification. CT LUNG RAD AND CT CHEST RECOMMENDATION: Lung-Rad 3 Probably Benign: 6 month follow-up LDCT.
== END | disposition home or self-care (01) ==
LOC: RADCTMAIN 10:43
PROVIDERS: ATTEND Internal Medicine Critical Care Medicine
DX: Z12.2 Encounter for screening for malignant neoplasm of respiratory organs (principal); Z87.891 Personal history of nicotine dependence
CPT/HCPCS: 71271

== ENCOUNTER → 2022-11-29 | Outpatient (CLI) | payer BC, OTHER ==
--- NOTE | 2022-11-29 12:26 | P.SLEEP ---
History of Present Illness DATE: 11/29/2022 CONSULTATION/NEW PATIENT EVALUATION HISTORY OF PRESENT ILLNESS/SLEEP-WAKE EVALUATION: 62-year-old lady had been ev aluated in the sleep center for possible obstructive sleep apnea hypopnea syndrome. SLEEP SCHEDULE: Usually sleep schedule from a 30 p.m to 6 AM on 9 weekdays and from 9:30 PM to 68 AM on weekend. FALLING ASLEEP: Sometimes patient has problems with the falling asleep, although no TV in bedroom. DURING SLEEP: Patient sleeps with loud snoring, witnessed episodes of gasping for air during the sleep, episodes of choking, grinding teeth, dry mouth, palpitations. Patient wakes up from sleep up to 3 times with nocturia. Positive history of jerking movements and nightmares. No history of hypnog ogical hallucinations, sleep paralysis, or cataplexy. DURING THE DAY/WAKE STATE: In the morning patient wake up tired, has episodes of depression and anxiety.. [place] sleepiness scale is 12, which is above normal and indicates sleepiness. Patient may take up to 23 naps during weekend usually late morning or mid afternoon. PAST MEDICAL HISTORY: Episodes of atrial fibrillation, hypertension and hypotension, fibromyalgia, left leg deep venous time was 6, sinus problems, headaches, lung nodules, possible lupus erythematosus. PAST SURGICAL HISTORY: Left leg surgery for venous problems, surgery for ovarian cysts, . MEDICATIONS: Metoprolol extended release 50 mg once a day, omeprazole 20 my gram once a day, flecainide 50 mg twice a day, Eliquis 5 mg twice a day, furosemide 40 mg in the morning and 20 mg in the middle of the day, venlafaxine 150 mg once a day, atorvastatin 20 mg once a day, oxybutynin twice a day. SOCIAL HISTORY: Positive for 40 years smoking, patient continued to smoke about half pack a day, alcohol consumption occasional. FAMILY HISTORY: Hypertension, stroke, diabetes, snoring. REVIEW OF SYSTEMS: Loud snoring, multiple awakenings from sleep, sleepiness during the day, jerking movements during the sleep. No fevers. No double vision. No recent chest pain. No shortness of breath. No abdominal pain. No bleeding episodes. No blood in urine. No seizure episodes. PHYSICAL EXAMINATION: GENERAL: A pleasant patient without any distress. VITAL SIGNS: BP 133/84, HR 72, RR 12, weight 299 pounds, height 5 foot 5.5 inches, body mass index 48.7. HEENT: PERRLA, EOMI. Evaluation of oropharynx showed tongue protrudes midline, low position of soft palate Mallampati 3. NECK: Supple. No JVD. Thyroid is not palpable. 17 inches in circumference. LUNGS: Clear to percussion and to auscultation. Good air exchange. No wheezing or rhonchi. HEART: S1, S2 regular. No murmurs, gallops or rubs. ABDOMEN: Soft and nontender. Bowel sounds are present. No organomegaly appreciated. Obese. EXTREMITIES: No clubbing or cyanosis. DISPLAY CARVER: Awake, alert, and oriented x3. Cranial nerves 2 to 7 intact. There is no fasciculation or atrophy noted. No focal deficits observed. ASSESSMENT: 1. Loud snoring, witnessed episodes of stop breathing during the sleep, low position of soft palate Mallampati 3, wide neck 17 inches in circumference, sleepiness [place] Sleepiness Scale increased to 12. Obstructive sleep apnea- hypopnea syndrome. 2. Obesity BMI 48.7. 3. Jerking movements during the night, possibly periodic limb movements. 4. History of possible fibromyalgia. 5 history of episodes of atrial fibrillation. 6 . Hypertension with episodes of hypotension. 7. History of possible lupus erythematosus. 8. History of sinus problems. 9 . History of lung nodules. 10. History of headaches. 11. History of deep venous thrombosis of left leg, status post surgical treatment. 12. Status post ovarian cyst removed. PLAN: 1. Polysomnography for evaluation of patient's breathing during sleep and to check for possible periodic limb movements. 2. CPAP/BiPAP titration if sleep study confirms obstructive sleep apnea- hypopnea syndrome. 3. Preferable position during sleep on the side. 4. No driving if patient feels any sleepiness. Patient is aware of civil and criminal liability for unsafe driving. 5. Sleep hygiene with regular sleep time for at least 7.5-8 hours. 6. Watching and losing weight. 7. Smoking cessation program. Thank you very much for referring this patient for consultation. Sincerely, Asaf Quispe MD, PhD, FAASM. Diplomat of [place] [employer], Sleep Medicine Board by [place] [employer] [place] [employer] [facility] Past Medical History Past Medical History: Atrial Fibrillation, Deep Vein Thrombosis (DVT), GI Bleed, Hyperlipidemia, Pneumonia Additional Past Medical History / Comment(s): Afib, DVT L leg, bilateral leg edema, rectal bleed, headaches, bronchitis, sinus allergies, constipation, abcess on kidney (R), Ovarian cyst History of Any Multi-Drug Resistant Organisms: None Reported Past Surgical History: Appendectomy, Section, Tonsillectomy Additional Past Surgical History / Comment(s): Pilonidial cyst removed, ovarian cyst removal, colonoscopy with benign polyp Past Anesthesia/Blood Transfusion Reactions: Motion Sickness Additional Past Anesthesia/Blood Transfusion Reaction / Comment(s): Pt states she has had problems with hypotension with surgery. Past Psychological History: Anxiety, Depression Additional Psychological History / Comment(s): Pt resides with her spouse. She works in [employer]. She is independent. Past Alcohol Use History: Rare Additional Past Alcohol Use History / Comment(s): Pt started smoking in 1977 and is down to a half pack per day. Past Drug Use History: None Reported - Past Family History Father Family Medical History: Diabetes Mellitus Additional Family Medical History / Comment(s): Paternal grandfather had a ID and paternal grandmother had a CVA. Mother Family Medical History: Deep Vein Thrombosis (DVT) Additional Family Medical History / Comment(s): Mother had had DVTs. She is living. Pt's maternal aunt of a PE. Her maternal grandparents had DVTs Medications and Allergies Home Medications Medication Instructions Recorded Confirmed Type Acetaminophen [Tylenol 8 Hour] 650 mg PO Q8H PRN 07/01/18 10/12/18 History Apixaban [Eliquis] 5 mg PO BID 07/01/18 10/12/18 History Atorvastatin Calcium [Lipitor] 10 mg PO HS 07/01/18 10/12/18 History Citalopram Hydrobromide [CeleXA] 40 mg PO DAILY 07/01/18 10/12/18 History Furosemide [Lasix] 40 mg PO DAILY 07/01/18 10/12/18 History Oxybutynin Xl [Ditropan XL] 10 mg PO HS 07/01/18 10/12/18 History Potassium Chloride [Klor-Con 20] 20 meq PO DAILY 07/01/18 10/12/18 History busPIRone HCL 10 mg PO DAILY 07/01/18 10/12/18 History Metoprolol Succinate (ER) [Toprol 50 mg PO DAILY #30 tab.er.24h 07/03/18 10/12/18 Rx XL] Black Cohosh 540 mg PO DAILY 10/12/18 10/12/18 History Evening [place] Oil 500 mg PO DAILY 10/12/18 10/12/18 History Flecainide [Tambocor] 50 mg PO Q12HR tab 10/12/18 Rx Inulin/Chromium Picolinate [Fiber 1 tab PO DAILY 10/12/18 10/12/18 History Gummies Chew] Lutein 10 mg PO DAILY 10/12/18 10/12/18 History Spironolactone [Aldactone] 25 mg PO DAILY #30 tab 10/12/18 Rx metOLazone [Zaroxolyn] 2.5 mg PO WESA 10/12/18 10/12/18 History Allergies Allergy/AdvReac Type Severity Reaction Status Date / Time No Known Allergies Allergy Verified 10/12/18 07:49 Sleep Note - Sleep Note Sleep Note: Temperature: Pulse Rate: Respiratory Rate: Blood Pressure: SpO2: Height: Weight: BMI: Neck Circumference:
== END ==
LOC: SLEEP 11:10
PROVIDERS: ATTEND Internal Medicine
DX: G47.33 Obstructive sleep apnea (adult) (pediatric) (principal); E66.9 Obesity, unspecified; Z68.42 Body mass index [BMI] 45.0-49.9, adult; I48.91 Unspecified atrial fibrillation; I10 Essential (primary) hypertension; Z86.718 Personal history of other venous thrombosis and embolism; Z98.890 Other specified postprocedural states; Z99.89 Dependence on other enabling machines and devices; F17.210 Nicotine dependence, cigarettes, uncomplicated; Z87.09 Personal history of other diseases of the respiratory system; Z86.69 Personal history of other diseases of the nervous system and sense organs; M79.7 Fibromyalgia; Z79.01 Long term (current) use of anticoagulants
CPT/HCPCS: 99211

== ENCOUNTER → 2023-03-06 | Outpatient (CLI) | payer BC, OTHER ==
--- NOTE | 2023-03-07 15:27 | MM ---
Reason for Exam: Screening (asymptomatic). Last screening mammogram was performed 12 month(s) ago. Patient History: Menarche at age 12. First Full-Term at age 35. Late child-bearing (after 30). Postmenopausal. Patient has history of breast feeding. Maternal grandmother had breast cancer, age 60. Risk Values: Annie 5 year model risk: 2.2%. NCI Lifetime model risk: 10.6%. Prior Study Comparison: 04/29/2018 Bilateral Screening Mammogram, [facility]. 10/29/2020 Bilateral Screening Mammogram, [facility]. 02/28/2022 Bilateral MG 3D screening mammo w/cad, [facility]. Tissue Density: There are scattered fibroglandular densities. Findings: Analyzed By CAD. Symmetrical and stable. Chronic nodularities within the outer left breast. No suspicious groups of microcalcifications, spiculated or lobular masses, architectural distortion or other secondary signs of malignancy are mammographically apparent. Overall Assessment: Benign, BI-RAD 2 Management: Screening Mammogram of both breasts in 1 year. A negative mammogram report should not preclude additional follow up of suspicious palpable abnormalities. Patient should continue monthly self breast exam. A clinical breast exam by your physician is recommended on an annual basis and results should be correlated with mammographic findings. Electronically signed and approved by: Rui Richter D.O. Radiologis
== END | disposition home or self-care (01) ==
LOC: RADMAMWWP 10:15
PROVIDERS: ATTEND Internal Medicine
DX: Z12.31 Encounter for screening mammogram for malignant neoplasm of breast (principal); Z78.0 Asymptomatic menopausal state; Z80.3 Family history of malignant neoplasm of breast
CPT/HCPCS: 77063; 77067

== ENCOUNTER → 2023-04-03 | Outpatient (CLI) | payer BC, OTHER ==
--- NOTE | 2023-04-03 12:17 | XR ---
EXAMINATION TYPE: XR mandible complete DATE OF EXAM: 04/03/2023 COMPARISON: NONE HISTORY: Jaw pain TECHNIQUE: 5 views of the FINDINGS: There is air surrounding the maxilla which could be within the oral cavity correlate clinic ally to exclude soft tissue air or infection. Patient is nearly edentulous. Posterior wisdom teeth ap pear to be preserved and there is suggestion of T10 extending into the paranasal sinuses. No destruct esme changes or evidence of fracture. Hypertrophic and degenerative changes of the cervical spine. IMPRESSION: 1. There is soft tissue air anterior to the maxilla on the lateral view could be related to previous or recent procedure. Correlate clinically to exclude infectious etiology. 2. There appear to be teeth which extends into the upper paranasal sinuses. Correlate clinically. No prior paranasal sinus CT scan available.
== END | disposition home or self-care (01) ==
LOC: RADXRMAIN 10:11
PROVIDERS: ATTEND Internal Medicine
DX: R68.84 Jaw pain (principal)
CPT/HCPCS: 70110

== ENCOUNTER → 2023-05-11 | Outpatient (CLI) | payer BC, OTHER ==
--- NOTE | 2023-05-11 23:56 | CTL ---
EXAMINATION TYPE: CT Low Dose Lung DATE OF EXAM ORDERED: 05/11/2023 HISTORY: . Lung cancer screening CT DLP: [address] CTDI: 2.75 mGy Automated exposure control for dose reduction was used. SCREENING VISIT: COMPARISON: Multiple previous with the most recent from 04/17/2022. TECHNIQUE: Low dose computed tomography scan was performed through the chest at 1 mm thick sections a nd reconstructed images in multiple planes at 1 mm and [address] DIAGNOSTIC QUALITY: Satisfactory FINDINGS: LUNG NODULES: There is a calcified granuloma in the right upper lobe and a 4.6 mm nodule in left u pper lobe which is unchanged. LUNGS: COPD: Severity: None Fibrosis: Severity: None Lymph nodes: Multiple calcified right hilar lymph nodes are present. Other findings: RIGHT PLEURAL SPACE: Effusion: None Calcification: None Thickening: None Pneumothorax: None LEFT PLEURAL SPACE: Effusion: None Calcification: None Thickening: None Pneumothorax: None HEART: Heart Size: Normal Coronary Calcification: Mild patchy diffuse coronary artery calcifications are seen. Pericardial Effusion: None OTHER FINDINGS: Upper abdomen: None Bony thorax: None Supraclavicular region: None Other: None IMPRESSION: 1. Unchanged pulmonary nodules as above. 2. Mild coronary calcification. CT LUNG RAD AND CT CHEST RECOMMENDATION: Lung-Rad 2 Benign Appearance or Behavior: Continue annual sc reening with LDCT in 12 months. S Modifier (other clinically significant findings): None.
== END | disposition home or self-care (01) ==
LOC: RADCTMAIN 14:25
PROVIDERS: ATTEND Internal Medicine Critical Care Medicine
DX: Z12.2 Encounter for screening for malignant neoplasm of respiratory organs (principal); I25.10 Atherosclerotic heart disease of native coronary artery without angina pectoris; R91.8 Other nonspecific abnormal finding of lung field; F17.210 Nicotine dependence, cigarettes, uncomplicated
CPT/HCPCS: 71271

== ENCOUNTER → 2023-05-30 | Outpatient (CLI) | payer BC, OTHER ==
--- NOTE | 2023-05-30 12:14 | P.PN ---
Subjective DATE: 05/30/2023 FOLLOW UP VISIT. Patient with obstructive sleep apnea hypopnea syndrome return to sleep center for follow-up visit. Recently patient had sleep study which documented obstructive sleep apnea hypopnea syndrome. Patient was initiated on PAP therapy and today is first visit after treatment was started. Patient was able to use PAP equipment every night for the whole night. I discussed results of sleep studies with patient in details Recently patient developed symptoms of trigeminal neuralgia and she'll mask was changed from full face mask to nasal mask. [place] sleepiness scale is increased to 12. Patient feels significant improvements after starting to use CPAP equipment fibrillation to show sleep quality and feeling during the day. No episodes of nightmares anymore.. I checked information from PAP unit. PAP unit pressure 8-13, average 11.9 cm H2O. Usage is 70 % for more then 4 hours, average 6.3 hours per night. Leak is 29 l/m, which is in acceptable range. Apnea Hypopnea Index is only 0.7, which is perfect. MEDICATIONS:1. Metoprolol 50 mg once a day 2. Omeprazole 20 mg once a day 3. Eliquis 5 mg twice a day 4. Furosemide 40 mg once a day 5. Venlafaxine 150 mg once a day 6. Atorvastatin 40 mg once a day 7. Allopurinol 100 mg once a day 8. Flecainide 50 mg twice a day During physical exam: GENERAL: A pleasant patient without any distress. VITAL SIGNS: BP 131/67, HR 69, RR 16, weight 290.2, temperature 98.3, oxygen saturation at room air 96%. HEENT: PERRLA, EOMI.low position of soft palate, Mallapati[] . NECK: Supple. No JVD. LUNGS: Clear to percussion and to auscultation. Good air exchange. No wheezing or rhonchi. HEART: S1, S2 regular. ABDOMEN: Soft and nontender.[] EXTREMITIES: No clubbing or cyanosis. SALES ENGAGEMENT MANAGER: Awake, alert, and oriented x3. No focal deficit. Impressions: 1. Obstructive sleep apnea-hypopnea syndrome. Patient demonstrated good compliance with treatment, benefiting from treatment. 2. Obesity, patient lost 9 pounds since previous visit. 3. History of episodes of atrial fibrillation. 4. History of possible lupus erythematosus. 5. History of lung nodules. 6. History of possible recent trigeminal neuralgia. 7. History of headaches. 8. History of DVT of left leg, status post surgical treatment. 9. History of possible fibromyalgia . Plan: 1. Continue using PAP equipment every night for the whole night. 2. To change air filter at least 1-2 times per month. 3. PAP unit should stay lower then position of the head. 4. Advised patient to remove all remaining water from humidifier canister daily and make it dry after each usage. Refill canister with fresh distilled water before each usage. 5. Sleep hygiene with regular time in bed for at least 8 hours. 6. Precautions related to driving. No driving if feel any sleepiness. 7. I will maintain prescription for PAP supplies including mask, tube, filters. 8. Follow up visit in 6 months or earlier if patient has any problems. 9. Watching and continue losing weight. Thank you very much for allowing me to participate in the management of your patient. Asaf Quispe MD, PhD, FAASM. Diplomat of [place] [employer], Sleep Medicine Board by [place] [employer] Medical Associate of [facility] [place]
== END ==
LOC: 3 N SLEEP 10:47
PROVIDERS: ATTEND Internal Medicine
DX: G47.33 Obstructive sleep apnea (adult) (pediatric) (principal); E66.9 Obesity, unspecified; R51.9 Headache, unspecified; R91.8 Other nonspecific abnormal finding of lung field; I48.91 Unspecified atrial fibrillation; F17.200 Nicotine dependence, unspecified, uncomplicated; Z79.01 Long term (current) use of anticoagulants; Z86.718 Personal history of other venous thrombosis and embolism; Z99.89 Dependence on other enabling machines and devices; Z79.899 Other long term (current) drug therapy
CPT/HCPCS: 99212

== ENCOUNTER → 2023-08-07 | Outpatient (CLI) | payer BC, OTHER ==
[2023-08-07 11:32] LABS: African American GFR (CKD) >90 (>60 ml/min/1.73 sqM); Blood Urea Nitrogen 19 mg/dL (7-17); Non-African American GFR(CKD) >90 (>60 ml/min/1.73 sqM)
--- NOTE | 2023-08-07 20:21 | MR ---
EXAMINATION TYPE: MR brain wo/w con DATE OF EXAM: 08/07/2023 COMPARISON: NONE HISTORY: 62-year-old female G50.0, Trigeminal Neuralgia TECHNIQUE: Multiplanar, multisequence images of the brain and brainstem were acquired before and aft er administration of 13 mL IV Gadavist. Diffusion weighted imaging is performed. FINDINGS: No evidence for acute infarction, hemorrhage, mass effect, midline shift, herniation, effacement of b jessica cisterns, or extra-axial fluid collection. 2.4 cm avidly enhancing extra-axial mass demonstrating intermediate T2 weighted signal intensity loca talha anterior right parafalcine region. There is a 2.4 x 0.7 cm elongated, lobulated mass along the right perimesencephalic cistern demonstra ting intermediate T2 weighted signal intensity and also shows avid postcontrast enhancement. The ventricles and sulci are age-appropriate. Major intracranial flow voids are intact. Left vertebral artery is dominant. Somewhat small caliber t o the vertebral basilar system. There is persistent origin of the posterior cerebral arteries. T2/FLAIR weighted sequences show patchy increased signal intensity within the bilateral paramedian po ns and scattered mild bright signal foci in the subcortical region left frontal lobe. Midline structures demonstrate normal morphology. The craniocervical junction is normal. Post contrast images demonstrate no other abnormal enhancement. Dural venous sinuses are patent. 1.5 cm mucosal retention cyst floor of the right maxillary sinus. Mild mucosal thickening ethmoid air cells. Globes are intact. IMPRESSION: 1. A 2.4 x 0.7 cm avidly enhancing extra-axial mass in the right perimesencephalic cistern is situate d along the expected course of the cisternal segment of cranial nerve V. Both meningioma and schwann devora are in the differential but the former is favored and likely contributes to the patient's symptom s. 2. A second meningioma measuring 2.4 cm anterior right parafalcine region. 3. Somewhat small caliber to the vertebrobasilar system with persistent origin to the posterior cerebral arteries. Correlate for any chronic symptoms of vertebrobasilar insufficiency. 4. Scattered mild burden of chronic small vessel ischemic disease.
== END | disposition home or self-care (01) ==
LOC: RADMRIMAIN 10:39
PROVIDERS: ATTEND Internal Medicine
DX: G50.0 Trigeminal neuralgia (principal); I67.82 Cerebral ischemia; D32.0 Benign neoplasm of cerebral meninges
CPT/HCPCS: 82565; 84520; 70553; A9585

== ENCOUNTER → 2023-09-04 | Outpatient (CLI) | payer BC ==
--- NOTE | 2023-09-04 10:57 | XR ---
EXAMINATION TYPE: XR chest 2V DATE OF EXAM: 09/04/2023 COMPARISON: 07/19/2021 TECHNIQUE: PA and lateral views submitted. HISTORY: pre-op FINDINGS: The lungs are clear and there is no pneumothorax, pleural effusion, or focal pneumonia. Heart size normal and no overt failure. Osseous structures demonstrate hypertrophic and degenerative changes of the spine. IMPRESSION: 1. No acute process.
== END | disposition home or self-care (01) ==
LOC: RADXRMAIN 10:33
PROVIDERS: ATTEND Neurological Surgery
DX: G50.0 Trigeminal neuralgia (principal)
CPT/HCPCS: 71046

== ENCOUNTER → 2023-09-04 | Outpatient (CLI) | payer BC ==
[2023-09-04 10:01] LABS: Appearance,Urine Clear (Clear); Bilirubin,Urine Negative (Negative); Blood,Urine Negative (Negative); Color,Urine Colorless; Glucose,Urine (UA) Negative (Negative); Ketones,Urine Negative (Negative); Leukocyte Esterase,Urine Negative (Negative); Nitrite,Urine Negative (Negative); PH, Urine 6.5 (5.0-8.0); Protein,Urine Negative (Negative); Specific Gravity,Urine 1.012 (1.001-1.035); Urobilinogen,Urine <2.0 mg/dL (<2.0)
[2023-09-04 10:07] LABS: Partial Thromboplastin Time 29.1 sec (22.0-30.0)
[2023-09-04 15:17] LABS: ALT 31 U/L (8-44); AST 24 U/L (13-35); Albumin 4.4 g/dL (3.8-4.9); Albumin/Globulin Ratio 1.83 Ratio (1.60-3.17); Alkaline Phosphatase 96 U/L (41-126); BUN/Creat Ratio 17.25 Ratio (12.00-20.00); Blood Urea Nitrogen 13.8 mg/dL (9.0-27.0); Calcium 9.9 mg/dL (8.7-10.3); Carbon Dioxide 28.4 mmol/L (21.6-31.8); Chloride 103 mmol/L (96-109); Globulin 2.4 g/dL (1.6-3.3); Glucose 104 mg/dL (70-110); Potassium 4.6 mmol/L (3.5-5.5); Sodium 144 mmol/L (135-145); Total Bilirubin 0.3 mg/dL (0.3-1.2); Total Protein 6.8 g/dL (6.2-8.2)
[2023-09-04 15:47] LABS: Basophils # (A) 0.06 X 10*3/uL (0.00-0.10); Basophils % (A) 0.7 %; Eosinophils # (A) 0.11 X 10*3/uL (0.04-0.35); Eosinophils % (A) 1.3 %; HCT 48.2 % (37.2-46.3); Lymphocytes % (A) 24.7 %; MCH 31.3 pg (27.0-32.0); MCHC 31.1 g/dL (32.0-37.0); MCV 100.4 FL (80.0-97.0); Mean Platelet Volume 12.7 FL (9.5-12.2); Monocytes # (A) 0.44 X 10*3/uL (0.20-1.00); Monocytes % (A) 5.2 %; NRBC Per 100 WBC 0 X 10*3/uL (0.00-0.01); Neutrophils # (A) 5.76 X 10*3/uL (1.80-7.70); Neutrophils % (A) 67.9 %; Platelet Count 202 X 10*3/uL (140-440); RDW 14.4 % (11.5-14.5); WBC 8.49 X 10*3/uL (4.50-10.00)
== END | disposition home or self-care (01) ==
LOC: LABWHC1 09:21
PROVIDERS: ATTEND Neurological Surgery
DX: G50.0 Trigeminal neuralgia (principal)
CPT/HCPCS: 36415; 80053; 81003; 85025; 85610; 85730; 87070

== ENCOUNTER → 2023-12-12 | Outpatient (CLI) | payer BC ==
--- NOTE | 2023-12-12 20:23 | MR ---
EXAMINATION TYPE: MR brain wo/w con DATE OF EXAM: 12/12/2023 COMPARISON: 08/07/2023 HISTORY: 63-year-old female D32.0 BENIGN NEOPLASM OF CEREBRAL MENINGES, Meningioma, f/u post surgical TECHNIQUE: Multiplanar, multisequence images of the brain and brainstem were acquired before and aft er administration of 12 mL IV Gadavist. Diffusion weighted imaging is performed. FINDINGS: Redemonstrated ovoid extra-axial mass along the right paramedian frontal convexity. This measures 2.4 cm AP by 1.1 cm craniocaudal by 2.1 cm wide demonstrating intermediate T2 weighted signal intensity and avid postcontrast enhancement. There has been interval lateral right occipital craniotomy. The previous extra-axial lesion along the right perimesencephalic cistern is smaller in size measuring 2.1 x 0.5 cm (versus 2.3 x 0.9 cm, prev iously. The previous abutment onto the brainstem appears to have resolved. No evidence for acute infarction, hemorrhage, mass effect, midline shift, herniation, effacement of basal cisterns, or extra-axial fluid collection. The ventricles and sulci are age-appropriate. Again, small caliber to the vertebrobasilar system with persistent origin right EMPLOYEE BENEFITS INSURANCE AGENT. T2/FLAIR weighted sequences show similar patchy bright signal change in the bilateral paramedian mealny and additional single bright signal focus in the subcortical anterior left frontal white matter gonzález uring 6 mm. Likely relating to changes of chronic small vessel ischemic disease. Midline structures demonstrate normal morphology. The craniocervical junction is normal. Post contrast images demonstrate no other evidence of pathologic enhancement. Adjacent to the right occipital craniotomy change, there appears to be filling defect within the jugu lar bulb and right sigmoid sinus. Minimal clot may be present within the lateral aspect of the right transverse sinus as well. This is seen on both the post contrast images and T2 weighted sequences. Po sterior retention cyst along the floor of the right maxillary sinus. Mild mucosal thickening ethmoid air cells. Globes are intact. Some mild hyperostosis frontalis interna noted. IMPRESSION: 1. Interval lateral right occipital craniotomy flap with debulking/partial resection of the previous extra-axial mass along the right perimesencephalic cistern. Now 2.1 x 0.5 cm (versus 2.2 x 0.9 cm, pr eviously). The previous abutment onto the brainstem has resolved.. 2. Redemonstrated anterior right parafalcine meningioma measuring 2.4 cm. 3. Similar small caliber to the vertebrobasilar system as mentioned previously.
== END | disposition home or self-care (01) ==
LOC: RADMRIMAIN 09:09
PROVIDERS: ATTEND Neurological Surgery
DX: D32.0 Benign neoplasm of cerebral meninges (principal); G50.0 Trigeminal neuralgia; Z98.890 Other specified postprocedural states
CPT/HCPCS: 70553; A9585

== ENCOUNTER → 2024-01-24 | Outpatient (CLI) | payer BC ==
[2024-01-24 15:35] VITALS: BP 134/87; PULSE 84; RESP 18; TEMP 98.1
--- NOTE | 2024-01-24 15:47 | P.PROGSL ---
Subjective DATE: 01/24/2024 FOLLOW UP VISIT. Patient with obstructive sleep apnea hypopnea syndrome return to sleep center for follow-up visit. Information from previous visit have been reviewed. Patient is using PAP equipment every night for the whole night, getting PAP supplies in time. The patient does not have significant problems with the mask, PAP unit and humidification. [place] sleepiness scale is slightly increased to 11. I checked information from PAP unit. PAP unit pressure 8-13, average 11.8 cm H2O. Usage is 96% for more then 4 hours, average 7.5 hours per night. Leak is increased to 32 l/m. Apnea Hypopnea Index is 0.3, which is perfect. MEDICATIONS: Please see below During physical exam: GENERAL: A pleasant patient without any distress. VITAL SIGNS: Please see below, weight 294.8 pounds, BMI 47.4. HEENT: PERRLA, EOMI.low position of soft palate, Mallapati 3. NECK: Supple. No JVD. LUNGS: Clear to percussion and to auscultation. Good air exchange. No wheezing or rhonchi. HEART: S1, S2 regular. ABDOMEN: Soft and nontender. Obese EXTREMITIES: No clubbing or cyanosis. RESIDENTIAL REAL ESTATE AGENT: Awake, alert, and oriented x3. No focal deficit. Impressions: 1. Obstructive sleep apnea-hypopnea syndrome. Patient demonstrated great compliance with treatment, benefiting from treatment. 2. Obesity, BMI 47.4. 3. Status post recent surgical treatment for trigeminal neuralgia. 4. History of possible lupus erythematosus. 5. History of episodes of atrial fibrillation. 6. History of lung nodules. 7. History of headaches. 8. History of DVT of left leg, status post surgical treatment. 9. History of possible fibromyalgia. Plan: 1. Continue using PAP equipment every night for the whole night. 2. To change air filter at least 1-2 times per month. 3. PAP unit should stay lower then position of the head. 4. Advised patient to remove all remaining water from humidifier canister daily and make it dry after each usage. Refill canister with fresh distilled water before each usage. 5. Sleep hygiene with regular time in bed for at least 8 hours. 6. Precautions related to driving. No driving if feel any sleepiness. 7. I will maintain prescription for PAP supplies including mask, tube, filters. 8. Watching and losing weight. 9. Follow up visit in 6 months or earlier if patient has any problems. Thank you very much for allowing me to participate in the management of your patient. Asaf Quispe MD, PhD, FAASM. Diplomat of [place] [employer], Sleep Medicine Board by [employer] [employer] [facility] [place] Objective - Vital Signs Vital Signs: Vital Signs Temp 98.1 F 01/24/24 15:34 Pulse 84 01/24/24 15:34 Resp 18 01/24/24 15:34 BP 134/87 01/24/24 15:34 Pulse Ox 98 01/24/24 15:34 FiO2 Intake & Output 01/23/24 01/24/24 01/24/24 18:59 06:59 18:59 Weight 133.356 kg Home Medications: Home Medications Medication Instructions Recorded Confirmed Type Acetaminophen [Tylenol 8 Hour] 650 mg PO Q8H PRN 07/01/18 10/12/18 History Apixaban [Eliquis] 5 mg PO BID 07/01/18 01/24/24 History Atorvastatin Calcium [Lipitor] 40 mg PO HS 07/01/18 01/24/24 History Citalopram Hydrobromide [CeleXA] 40 mg PO DAILY 07/01/18 10/12/18 History Furosemide [Lasix] 40 mg PO DAILY 07/01/18 01/24/24 History Oxybutynin Xl [Ditropan XL] 40 mg PO BID 07/01/18 01/24/24 History Potassium Chloride [Klor-Con 20] 20 meq PO DAILY 07/01/18 10/12/18 History busPIRone HCL 10 mg PO DAILY 07/01/18 10/12/18 History Metoprolol Succinate (ER) [Toprol 50 mg PO DAILY #30 tab.er.24h 07/03/18 01/24/24 Rx XL] Black Cohosh 540 mg PO DAILY 10/12/18 10/12/18 History Evening [place] Oil 500 mg PO DAILY 10/12/18 10/12/18 History Flecainide [Tambocor] 50 mg PO Q12HR tab 10/12/18 01/24/24 Rx Inulin/Chromium Picolinate [Fiber 1 tab PO DAILY 10/12/18 10/12/18 History Gummies Chew] Lutein 10 mg PO DAILY 10/12/18 10/12/18 History Spironolactone [Aldactone] 25 mg PO DAILY #30 tab 10/12/18 Rx metOLazone [Zaroxolyn] 2.5 mg PO WESA 10/12/18 10/12/18 History Omeprazole 20 mg PO DAILY 01/24/24 01/24/24 History Venlafaxine HCl ER [Effexor Xr] 0.37 mg PO DAILY 01/24/24 01/24/24 History
== END ==
LOC: 3 N SLEEP 15:05
PROVIDERS: ATTEND Internal Medicine
DX: G47.33 Obstructive sleep apnea (adult) (pediatric) (principal); E66.9 Obesity, unspecified; I48.91 Unspecified atrial fibrillation; F17.200 Nicotine dependence, unspecified, uncomplicated; Z86.69 Personal history of other diseases of the nervous system and sense organs; Z86.718 Personal history of other venous thrombosis and embolism; Z87.09 Personal history of other diseases of the respiratory system; Z98.890 Other specified postprocedural states; Z79.01 Long term (current) use of anticoagulants; Z99.89 Dependence on other enabling machines and devices; Z68.42 Body mass index [BMI] 45.0-49.9, adult; Z88.8 Allergy status to other drugs, medicaments and biological substances
CPT/HCPCS: 99212

== ENCOUNTER → 2024-04-15 | Outpatient (CLI) | payer BC ==
[2024-04-15 15:15] LABS: Basophils # (A) 0.04 X 10*3/uL (0.00-0.10); Basophils % (A) 0.5 %; Eosinophils # (A) 0.12 X 10*3/uL (0.04-0.35); Eosinophils % (A) 1.5 %; HCT 44.2 % (37.2-46.3); Lymphocytes # (A) 1.84 X 10*3/uL (0.90-5.00); Lymphocytes % (A) 22.6 %; MCH 31.6 pg (27.0-32.0); MCHC 31.7 g/dL (32.0-37.0); MCV 99.8 FL (80.0-97.0); Mean Platelet Volume 11.8 FL (9.5-12.2); Monocytes # (A) 0.51 X 10*3/uL (0.20-1.00); Monocytes % (A) 6.3 %; NRBC Per 100 WBC 0 X 10*3/uL (0.00-0.01); Neutrophils # (A) 5.62 X 10*3/uL (1.80-7.70); Neutrophils % (A) 68.9 %; Platelet Count 205 X 10*3/uL (140-440); RBC 4.43 X 10*6/uL (4.10-5.20); RDW 15.1 % (11.5-14.5); WBC 8.15 X 10*3/uL (4.50-10.00)
[2024-04-15 18:47] LABS: ALT 25 U/L (8-44); AST 23 U/L (13-35); Albumin 4.4 g/dL (3.8-4.9); Alkaline Phosphatase 98 U/L (41-126); BUN/Creat Ratio 25.57 Ratio (12.00-20.00); Blood Urea Nitrogen 17.9 mg/dL (9.0-27.0); Calcium 9.3 mg/dL (8.7-10.3); Carbon Dioxide 28.3 mmol/L (21.6-31.8); Chloride 104 mmol/L (96-109); Glucose 116 mg/dL (70-110); LDL Cholesterol,Calculated 99.1 mg/dL (0.0-131.0); Magnesium 2.4 mg/dL (1.5-2.4); Potassium 4.4 mmol/L (3.5-5.5); Sodium 143 mmol/L (135-145); Total Bilirubin 0.4 mg/dL (0.3-1.2); Total Protein 6.4 g/dL (6.2-8.2)
--- NOTE | 2024-04-23 12:26 | MM ---
Reason for Exam: Screening (asymptomatic). Last mammogram was performed 1 year(s) and 1 month(s) ago. Patient History: Menarche at age 12. First Full-Term at age 35. Late child-bearing (after 30). Postmenopausal. Patient has history of breast feeding. Maternal grandmother had breast cancer, age 60. Risk Values: Annie 5 year model risk: 2.3%. NCI Lifetime model risk: 10.3%. Prior Study Comparison: 10/29/2020 Bilateral Screening Mammogram, [facility]. 02/28/2022 Bilateral MG 3D screening mammo w/cad, [facility]. 03/06/2023 Bilateral MG 3D screening mammo w/cad, [facility]. Tissue Density: There are scattered areas of fibroglandular density. Findings: Analyzed By CAD. Right breast: There is no suspicious group of microcalcifications or new suspicious mass. Left breast: There is no suspicious group of microcalcifications or new suspicious mass. Overall Assessment: Negative, BI-RAD 1 Management: Screening Mammogram of both breasts in [address] [facility] will attempt to contact patient to return for supplemental views and ultrasound if indicated. Patient should continue monthly self-breast exams. A clinical breast exam by your physician is recommended on an annual basis. This exam should not preclude additional follow-up of suspicious palpable abnormalities. Note on Annie scores and lifetime risk: 1. A Annie score greater than 3% is considered moderate risk. If this is the case, consider specialist referral to assess eligibility for a risk reducing agent. 2. If overall lifetime risk for the development of breast cancer is 20% or higher, the patient may qualify for future screening with alternating mammogram and breast MRI. Electronically signed and approved by: Chandra Gonzalez DO
== END | disposition home or self-care (01) ==
LOC: RADMAMWWP 08:54
PROVIDERS: ATTEND Internal Medicine
DX: Z12.31 Encounter for screening mammogram for malignant neoplasm of breast
CPT/HCPCS: 77063; 77067; 80053; 80061; 83036; 83735; 84443; 85025

== ENCOUNTER → 2024-06-04 | Outpatient (CLI) | payer BC ==
--- NOTE | 2024-06-04 15:34 | CTL ---
EXAMINATION TYPE: CT Low Dose Lung DATE OF EXAM ORDERED: 06/04/2024 HISTORY: Nicotine dependence, current smoker, 20 pack-year history. Lung cancer screening CT DLP: 146.[address] CTDI: 4.1 mGy Automated exposure control for dose reduction was used. SCREENING VISIT: Fourth screening visit COMPARISON: CT Low Dose Lung 05/11/2023, 04/17/2022, 08/31/2021 TECHNIQUE: Low dose computed tomography scan was performed through the chest at 1 mm thick sections a nd reconstructed images in multiple planes at 1 mm and [address] DIAGNOSTIC QUALITY: Satisfactory FINDINGS: Nodules: Small scattered calcified granulomas. No posterior left upper lobe 6 mm nodule with central punctate calcification abutting the left major fissure. Possible hamartoma. No new or enlarging or nodules. LUNGS: COPD: Severity: None Fibrosis: Severity: None Lymph nodes: No lymphadenopathy. Calcified mediastinal and right hilar lymph nodes redemonstrated. Other findings: None RIGHT PLEURAL SPACE: Effusion: None Calcification: None Thickening: None Pneumothorax: None LEFT PLEURAL SPACE: Effusion: None Calcification: None Thickening: None Pneumothorax: None HEART: Heart Size: Normal Coronary Calcification: Small Pericardial Effusion: None OTHER FINDINGS: Upper abdomen: None Bony thorax: Bridging osteophytes in the spine with preservation of disc spaces, correlate for DISH. Supraclavicular region: None Other: None IMPRESSION: 1. Stable calcified pulmonary nodules which may represent calcific granulomas versus hematomas. No n ew or enlarging pulmonary nodules. 2. Sequelae of prior granulomatous disease. CT LUNG RAD AND CT CHEST RECOMMENDATION: Lung-Rad 2 Benign Appearance or Behavior: Continue annual sc reening with LDCT in 12 months. S Modifier (other clinically significant findings): None [facility], , 06/04/2024 3:31 PM
== END ==
LOC: RADCTMAIN 12:24
PROVIDERS: ATTEND Internal Medicine
CPT/HCPCS: 71271

== ENCOUNTER → 2024-11-27 | Outpatient (CLI) | payer BC ==
--- NOTE | 2024-11-27 12:56 | MR ---
EXAMINATION TYPE: MR brain wo/w con DATE OF EXAM: 11/27/2024 12:35 PM COMPARISON: 12/12/2023 CLINICAL INDICATION: Female, 64 years old with history of D32.0 BENIGN NEOPLASM OF CEREBRAL MENINGES, Meningioma removal ,6-month f/u TECHNIQUE: Multiplanar, multiecho imaging on a 3.0 Yumiko magnet is performed through the brain. Stud y is performed within 24 hours of arrival to the hospital.Multiplanar, multiecho imaging on a 3.0 Nusrat la magnet is performed through the knee. IV Contrast: 13 mL Gadobutrol (None, if empty) FINDINGS: The craniovertebral junction is normal. The pituitary is normal. Diffusion-weighted imaging is performed. No abnormal hyperintensity is present to suggest an acute i ntracranial infarct or acute ischemic change. There is some increased signal within the brainstem. Findings present previously are nonspecific and can be related to microvascular ischemic change. There is a punctate hyperintensity within the left frontal subcortical white matter. Image 33 inversi on recovery. Punctate hyperintensities within the mid right frontal lobe. Image 35. Ventricles and sulci are appropriate for the patient age. On postcontrast images there is the best visualization of the patient's prior anterior calvarial meni ngioma. On postcontrast imaging this measures 1.6 x 2.4 cm, image 107, in the axial plane and 1.3 x 2.1 cm, image 31, in the sagittal plane. This may be minimally smaller than the comparison. No interv al growth is evident. Postcontrast images there is some mild thickening along the right skull base which may have some mini mal contact with the right side brainstem. This enhancing area measures 2.2 x 0.[address] able from the comparison. No interval growth is appreciated. There is a retention cyst within the inferior right maxillary sinus. Remaining paranasal sinuses and mastoid air cells are clear. IMPRESSION: 1. No interval growth of the enhancing mass anterior extra-axial space. Right mesencephalic enhancing lesion appears stable. Findings compatible with stability of the postsurgical meningiomas. 2. Couple of stable nonspecific subcortical white matter changes likely on the basis of chronic white matter ischemic change [facility], , 11/27/2024 12:54 PM
== END | disposition home or self-care (01) ==
LOC: RADMRIMAIN 11:27
PROVIDERS: ATTEND Psychiatry & Neurology Neurology
DX: D32.0 Benign neoplasm of cerebral meninges (principal); R90.82 White matter disease, unspecified; G93.89 Other specified disorders of brain
CPT/HCPCS: 70553; A9585

== ENCOUNTER → 2024-12-23 | Outpatient (CLI) | payer BC ==
[2024-12-23 15:10] LABS: Basophils # (A) 0.04 X 10*3/uL (0.00-0.10); Basophils % (A) 0.6 %; Eosinophils # (A) 0.14 X 10*3/uL (0.04-0.35); Eosinophils % (A) 2.2 %; HGB 14.2 g/dL (12.0-15.0); Lymphocytes % (A) 30.9 %; MCH 31.3 pg (27.0-32.0); MCHC 31.6 g/dL (32.0-37.0); MCV 99.1 FL (80.0-97.0); Mean Platelet Volume 11.5 FL (9.5-12.2); Monocytes # (A) 0.43 X 10*3/uL (0.20-1.00); Monocytes % (A) 6.6 %; NRBC Per 100 WBC 0 X 10*3/uL (0.00-0.01); Neutrophils # (A) 3.84 X 10*3/uL (1.80-7.70); Neutrophils % (A) 59.2 %; Platelet Count 211 X 10*3/uL (140-440); RBC 4.54 X 10*6/uL (4.10-5.20); RDW 14.4 % (11.5-14.5); WBC 6.48 X 10*3/uL (4.50-10.00)
[2024-12-23 15:23] LABS: ALT 20 U/L (8-44); AST 21 U/L (13-35); Albumin 4.2 g/dL (3.8-4.9); Albumin/Globulin Ratio 1.83 Ratio (1.60-3.17); Alkaline Phosphatase 98 U/L (41-126); BUN/Creat Ratio 20.83 Ratio (12.00-20.00); Blood Urea Nitrogen 12.5 mg/dL (9.0-27.0); Calcium 9.3 mg/dL (8.7-10.3); Carbon Dioxide 24.6 mmol/L (21.6-31.8); Chloride 106 mmol/L (96-109); Chol/HDL Ratio 4.52 Ratio; Globulin 2.3 g/dL (1.6-3.3); Glucose 104 mg/dL (70-110); LDL Cholesterol,Calculated 86.9 mg/dL (0.0-131.0); Magnesium 2.4 mg/dL (1.5-2.4); Potassium 4.8 mmol/L (3.5-5.5); Sodium 143 mmol/L (135-145); Total Bilirubin 0.3 mg/dL (0.3-1.2); Total Protein 6.5 g/dL (6.2-8.2); Uric Acid 6.6 mg/dL (2.9-7.7)
== END | disposition home or self-care (01) ==
LOC: LABWHC1 10:44
PROVIDERS: ATTEND Internal Medicine
DX: I10 Essential (primary) hypertension (principal); E78.5 Hyperlipidemia, unspecified; E55.9 Vitamin D deficiency, unspecified; R73.9 Hyperglycemia, unspecified; M10.9 Gout, unspecified
CPT/HCPCS: 36415; 80053; 80061; 82306; 83036; 83735; 84443; 84550; 85025